=== PATIENT | male | born 1955 | race African-American/Black ===

== ENCOUNTER 2017-07-18 01:40 | Emergency (ER) | payer OTHER ==
[~2017-07-18] VITALS: Ht 172.7 cm; Wt 92.7 kg
[~2017-07-18 01:40] MED LIST: HUM10VIA6 SQ; INSLAN; METF500T4 PO
[2017-07-18] MEDS ORDERED: PERM60CR4 TP (01:52)
[2017-07-18 03:24] VITALS: BP 138/68
== END 2017-07-18 03:35 | disposition home or self-care (01) ==
LOC: EMS 01:41
DX: B86 Scabies (principal); E11.9 Type 2 diabetes mellitus without complications; I10 Essential (primary) hypertension; Z79.4 Long term (current) use of insulin
CPT/HCPCS: 99283

== ENCOUNTER 2018-03-16 16:51 | Emergency (ER) | payer OTHER ==
[~2018-03-16] VITALS: Ht 172.7 cm; Wt 97.0 kg
[~2018-03-16 16:51] MED LIST changes: -INSLAN; +INSLAN SQ; -METF500T4 PO; +METF500T6 PO; +PERM60CR4 TP
[2018-03-16] MEDS ORDERED: ACETAMINOPHEN 325 MG TABLET PO ONE (19:00)
[2018-03-16 19:57] VITALS: BP 134/69
== END 2018-03-16 20:00 | disposition home or self-care (01) ==
LOC: EMS 16:52
DX: S92.354A Nondisplaced fracture of fifth metatarsal bone, right foot, initial encounter for closed fracture (principal); E11.9 Type 2 diabetes mellitus without complications; I10 Essential (primary) hypertension; Z79.4 Long term (current) use of insulin; X50.1XXA Overexertion from prolonged static or awkward postures, initial encounter; Y93.89 Activity, other specified; Y92.810 Car as the place of occurrence of the external cause; Y99.8 Other external cause status
CPT/HCPCS: 29515; 99284

== ENCOUNTER 2018-09-14 15:32 | Emergency (ER) | payer OTHER ==
[~2018-09-14] VITALS: Ht 172.7 cm; Wt 96.4 kg
[~2018-09-14 15:32] MED LIST changes: +METF-960 PO; -METF500T6 PO; -PERM60CR4 TP
[2018-09-14] MEDS ORDERED: HIGH CHOLESTEROL PO (17:24)
[2018-09-14] MEDS ORDERED: [UNRECOGNIZED DRUG - OTHER] PO (17:24)
[2018-09-14] MEDS ORDERED: HYPERTENSION PO (17:26)
[2018-09-14 17:30] LABS: GLUCOSE,POINT OF CARE 233 MG/DL (70-110)
[2018-09-14] MEDS ORDERED: HYDR25TA84 PO (17:31)
[2018-09-14] MEDS ORDERED: ATOR40TA71 PO (17:31)
[2018-09-14] MEDS ORDERED: ASPI-1182 PO (17:31)
[2018-09-14] MEDS ORDERED: LISI40TA4 PO (17:31)
[2018-09-14 18:43] VITALS: BP 149/64
== END 2018-09-14 19:35 | disposition home or self-care (01) ==
LOC: EMS 15:33
DX: B35.6 Tinea cruris (principal); E11.9 Type 2 diabetes mellitus without complications; I10 Essential (primary) hypertension; Z79.82 Long term (current) use of aspirin; Z79.84 Long term (current) use of oral hypoglycemic drugs; Z79.4 Long term (current) use of insulin; Z79.899 Other long term (current) drug therapy

== ENCOUNTER 2019-01-19 13:23 | Emergency (ER) | payer OTHER ==
[~2019-01-19] VITALS: Ht 177.8 cm; Wt 113.6 kg
[~2019-01-19 13:23] MED LIST changes: +ASPI-1182 PO; +ATOR40TA71 PO; +HYDR25TA84 PO; +LISI40TA4 PO
[2019-01-19 13:31] VITALS: BP 150/72
[2019-01-19] MEDS ORDERED: INSU500V SQ (13:33)
[2019-01-19 13:41] LABS: GLUCOSE,POINT OF CARE 71 MG/DL (70-110)
== END 2019-01-19 15:47 | disposition home or self-care (01) ==
LOC: EMS 13:23
DX: E11.9 Type 2 diabetes mellitus without complications (principal); I10 Essential (primary) hypertension; Z76.0 Encounter for issue of repeat prescription; Z79.4 Long term (current) use of insulin; Z79.82 Long term (current) use of aspirin; Z79.899 Other long term (current) drug therapy

== ENCOUNTER 2019-03-20 12:22 | Emergency (ER) | payer OTHER ==
[~2019-03-20] VITALS: Ht 180.3 cm; Wt 95.0 kg
[~2019-03-20 12:22] MED LIST changes: -HUM10VIA6 SQ; -INSLAN SQ; +INSU500V SQ
[2019-03-20 12:45] LABS: GLUCOSE,POINT OF CARE 225 MG/DL (70-110)
[2019-03-20 14:01] VITALS: BP 132/73
== END 2019-03-20 14:02 | disposition home or self-care (01) ==
LOC: EMS 12:22
DX: L30.9 Dermatitis, unspecified (principal); R21 Rash and other nonspecific skin eruption; I10 Essential (primary) hypertension; E11.9 Type 2 diabetes mellitus without complications; Z79.4 Long term (current) use of insulin

== ENCOUNTER 2024-04-25 15:53 | Emergency (ER) | payer OTHER ==
[~2024-04-25] VITALS: Ht 180.3 cm; Wt 88.6 kg
[~2024-04-25 15:53] MED LIST changes: -ASPI-1182 PO; +ASPI-1444 PO; -LISI40TA4 PO; +LISI40TA9 PO; +METF-1211 PO; -METF-960 PO
[2024-04-25 15:59] VITALS: TEMP 99.4
[2024-04-25] MEDS ORDERED: ALBU18HF12 IH (16:05)
[2024-04-25 16:42] LABS: BASOPHILS % (AUTO) 0.9 % (0.0-2.0); EOSINOPHILS % (AUTO) 1.3 % (1.0-6.0); HEMATOCRIT 40.1 % (41-53); HEMOGLOBIN 13.3 g/dL (13.5-17.5); LYMPHOCYTES # (AUTO) 0.6 K/uL (1.0-4.8); LYMPHOCYTES % (AUTO) 6.2 % (22.0-44.0); MEAN CORPUSCULAR HGB CONC 33.2 G/dL (31.0-37.0); MEAN CORPUSCULAR VOLUME 84 fL (80-100); MONOCYTES # (AUTO) 1.3 K/uL (0.1-1.0); MONOCYTES % (AUTO) 12.9 % (2.0-9.0); NEUTROPHILS # (AUTO) 8.1 K/uL (1.8-7.7); NEUTROPHILS % (AUTO) 78.7 % (40.0-70.0); PLATELET COUNT (AUTO) 437 K/uL (150-450); RED BLOOD CELL COUNT(AUTO) 4.75 MIL/uL (4.50-5.90); RED CELL DISTRIBUTION WIDTH 17.6 % (11.5-14.5); WHITE BLOOD COUNT (AUTO) 10.4 K/uL (4.5-11.0)
[2024-04-25 16:45] LABS: ANION GAP 9 mmol/L (8-16); CALCIUM, TOTAL 8.8 mg/dL (8.8-10.5); CARBON DIOXIDE 28 mmol/L (22-29); CHLORIDE 100 mmol/L (98-107); CREATININE 1.06 mg/dL (0.60-1.30); GLOMERULAR FILTR. RATE CALC > 60 mL/min (>60); GLUCOSE,RANDOM 97 mg/dL (70-110); POTASSIUM 3.8 mmol/L (3.5-5.1); SODIUM SERUM 137 mmol/L (136-145); UREA NITROGEN, BLOOD 14 mg/dL (7-18)
[2024-04-25 16:53] LABS: TROPONIN I-HIGH SENSITIVITY 8 ng/L (<76)
[2024-04-25 16:55] LABS: CREATINE KINASE, TOTAL ONLY 486 U/L (39-308)
[2024-04-25] MEDS: GuaiFENesin/D-METHORPHAN [SUGAR-FREE] 200-20MG/10 ML SYRUP UDCUP PO ONE (17:16)
[2024-04-25] MEDS: PredniSONE 20 MG TABLET PO ONE (18:01)
[2024-04-25 20:30] VITALS: BP 129/65
[2024-04-25] MEDS: ALBUTEROL SULFATE 2.5 MG/0.5 ML NEB SOLUTION NEB ONE (20:58)
[2024-04-25] MEDS: IPRATROPIUM BROMIDE 0.5 MG/2.5 ML NEB SOLUTION NEB ONE (20:58)
[2024-04-25 21:04] VITALS: PULSE 84; RESP 18; O2SAT 93
[2024-04-25] MEDS ORDERED: PRED-554 PO (22:00)
== END 2024-04-25 23:26 | disposition home or self-care (01) ==
LOC: EMS 15:53
DX: J45.909 Unspecified asthma, uncomplicated (principal); E11.9 Type 2 diabetes mellitus without complications; E78.00 Pure hypercholesterolemia, unspecified; I10 Essential (primary) hypertension
CPT/HCPCS: 99285; 94060; 71045; 80048; 82550; 82962; 83880; 84484; 85025; 36415; 93005; 94640; J7512; J7613

== ENCOUNTER 2024-06-23 12:36 | Emergency (ER) | payer OTHER ==
[~2024-06-23] VITALS: Ht 177.8 cm; Wt 79.5 kg
[~2024-06-23 12:36] MED LIST changes: +ALBU18HF12 IH; +PRED-554 PO
[2024-06-23 12:37] VITALS: TEMP 98.2
[2024-06-23] MEDS ORDERED: DULA3PEN SQ (14:39)
[2024-06-23] MEDS ORDERED: MOME13HF11 IH (14:39)
[2024-06-23] MEDS ORDERED: LOSA-382 PO (14:39)
[2024-06-23] MEDS ORDERED: AMLO5TAB66 PO (14:39)
[2024-06-23] MEDS ORDERED: ATOR-2 PO (14:39)
[2024-06-23] MEDS: GuaiFENesin/D-METHORPHAN [SUGAR-FREE] 200-20MG/10 ML SYRUP UDCUP PO ONE (14:42)
[2024-06-23] MEDS: ACETAMINOPHEN 500 MG TABLET PO ONE (14:43)
[2024-06-23] MEDS: PredniSONE 20 MG TABLET PO ONE (14:43)
[2024-06-23 14:44] VITALS: PULSE 67; RESP 20; O2SAT 98
[2024-06-23] MEDS: ALBUTEROL SULFATE 2.5 MG/0.5 ML NEB SOLUTION NEB ONE (14:44)
[2024-06-23] MEDS: IPRATROPIUM BROMIDE 0.5 MG/2.5 ML NEB SOLUTION NEB ONE (14:44)
[2024-06-23 14:57] VITALS: PULSE 68; RESP 20; O2SAT 100
[2024-06-23 14:58] LABS: BASOPHILS % (AUTO) 1.2 % (0.0-2.0); EOSINOPHILS % (AUTO) 4.7 % (1.0-6.0); HEMATOCRIT 42.3 % (41-53); HEMOGLOBIN 14.1 g/dL (13.5-17.5); LYMPHOCYTES # (AUTO) 1.3 K/uL (1.0-4.8); MEAN CORPUSCULAR HEMOGLOBIN 28.9 pg (26.0-34.0); MEAN CORPUSCULAR HGB CONC 33.3 G/dL (31.0-37.0); MEAN CORPUSCULAR VOLUME 87 fL (80-100); MONOCYTES # (AUTO) 0.6 K/uL (0.1-1.0); MONOCYTES % (AUTO) 8.8 % (2.0-9.0); NEUTROPHILS # (AUTO) 4.5 K/uL (1.8-7.7); NEUTROPHILS % (AUTO) 66.3 % (40.0-70.0); PLATELET COUNT (AUTO) 376 K/uL (150-450); RED BLOOD CELL COUNT(AUTO) 4.88 MIL/uL (4.50-5.90); RED CELL DISTRIBUTION WIDTH 15.8 % (11.5-14.5); WHITE BLOOD COUNT (AUTO) 6.8 K/uL (4.5-11.0)
[2024-06-23 15:06] LABS: ANION GAP 8 mmol/L (8-16); CALCIUM, TOTAL 8.8 mg/dL (8.8-10.5); CARBON DIOXIDE 27 mmol/L (22-29); CHLORIDE 102 mmol/L (98-107); CREATININE 0.76 mg/dL (0.60-1.30); GLOMERULAR FILTR. RATE CALC > 60 mL/min (>60); GLUCOSE,RANDOM 173 mg/dL (70-110); POTASSIUM 3.5 mmol/L (3.5-5.1); SODIUM SERUM 137 mmol/L (136-145); UREA NITROGEN, BLOOD 9 mg/dL (7-18)
[2024-06-23 15:21] LABS: TROPONIN I-HIGH SENSITIVITY 4 ng/L (<76)
[2024-06-23 16:11] VITALS: BP 138/65; PULSE 63; RESP 18; O2SAT 97
[2024-06-23] MEDS ORDERED: ALBU18HF12 IH (16:21)
[2024-06-23] MEDS ORDERED: BENZ-227 PO (16:21)
[2024-06-23] MEDS ORDERED: GUAIFDM PO (16:21)
[2024-06-23] MEDS ORDERED: ACET-66 PO (16:21)
[2024-06-23] MEDS ORDERED: PRED-554 PO (16:21)
== END 2024-06-23 16:53 | disposition home or self-care (01) ==
LOC: EMS 12:36
DX: J45.909 Unspecified asthma, uncomplicated (principal); J06.9 Acute upper respiratory infection, unspecified; E11.9 Type 2 diabetes mellitus without complications; I10 Essential (primary) hypertension; E78.00 Pure hypercholesterolemia, unspecified; Z79.4 Long term (current) use of insulin; Z79.51 Long term (current) use of inhaled steroids; Z79.82 Long term (current) use of aspirin; Z79.899 Other long term (current) drug therapy
CPT/HCPCS: 99285; 71045; 80048; 84484; 85025; 36415; 94640; 93005; J7512; J7613

== ENCOUNTER 2024-11-24 11:36 | Emergency (ER) | payer OTHER ==
[~2024-11-24] VITALS: Ht 180.3 cm; Wt 90.9 kg
[~2024-11-24 11:36] MED LIST changes: +ACET-66 PO; +AMLO5TAB66 PO; +ATOR-2 PO; -ATOR40TA71 PO; +BENZ-227 PO; +DULA3PEN SQ; +GUAIFDM PO; -LISI40TA9 PO; +LOSA-382 PO; -METF-1211 PO; +MOME13HF11 IH
[2024-11-24 11:51] VITALS: TEMP 98.2
[2024-11-24 12:49] LABS: COVID AG,FIA SOURCE NASAL SWAB
[2024-11-24 13:16] LABS: SARS-COV2 (COVID) ANTIGEN,FIA Negative (Negative)
[2024-11-24 13:17] LABS: INFLUENZA TYPE B NEGATIVE FOR TYPE B (NEGATIVE)
[2024-11-24 13:20] LABS: INFLUENZA TYPE A POSITIVE FOR TYPE A (NEGATIVE)
[2024-11-24] MEDS ORDERED: OSEL75CA45 PO (14:52)
[2024-11-24] MEDS ORDERED: AZIT250T9 PO (14:53)
[2024-11-24 15:00] VITALS: BP 119/66; PULSE 71; RESP 17; O2SAT 98
[2024-11-24] MEDS ORDERED: BENZ-227 PO (15:06)
== END 2024-11-24 15:30 | disposition home or self-care (01) ==
LOC: EMS 11:38
DX: J11.00 Influenza due to unidentified influenza virus with unspecified type of pneumonia (principal); E11.9 Type 2 diabetes mellitus without complications; I10 Essential (primary) hypertension; J45.909 Unspecified asthma, uncomplicated; E78.00 Pure hypercholesterolemia, unspecified; Z79.4 Long term (current) use of insulin; Z79.51 Long term (current) use of inhaled steroids; Z79.52 Long term (current) use of systemic steroids; Z79.82 Long term (current) use of aspirin; Z79.899 Other long term (current) drug therapy; Z20.822 Contact with and (suspected) exposure to COVID-19
CPT/HCPCS: 71045; 87804; 99284